=== PATIENT | male | born 2000 ===

== ENCOUNTER 2025-02-18 19:32 | Emergency (ER) | payer OTHER ==
[~2025-02-18] VITALS: Ht 177.8 cm; Wt 99.8 kg
[2025-02-18] MEDS ORDERED: Fluorescein Sod 1MG Opth Strips RIGHTEYE ONE (21:25)
== END 2025-02-18 21:45 | disposition home or self-care (01) ==
LOC: ER 19:32
DX: H57.11 Ocular pain, right eye (principal)
CPT/HCPCS: A9270